=== PATIENT | male | born 1955 | race Caucasian/White ===

== ENCOUNTER 2022-09-16 23:22 | Emergency (ER) | payer MEDICARE, MEDICAID ==
[~2022-09-16] VITALS: Ht 165.1 cm; Wt 90.0 kg
[2022-09-16 23:45] VITALS: BP 127/82; TEMP 97.3
[2022-09-17 00:30] VITALS: PULSE 85; RESP 16; O2SAT 97
== END 2022-09-17 00:31 | disposition home or self-care (01) ==
LOC: ER 23:22
DX: F10.129 Alcohol abuse with intoxication, unspecified (principal); F17.200 Nicotine dependence, unspecified, uncomplicated; Y90.9 Presence of alcohol in blood, level not specified
CPT/HCPCS: 99283